=== PATIENT | female | born 1985 | race Caucasian/White ===

== ENCOUNTER 2020-08-09 07:43 | Emergency (ER) | payer BC, SELFPAY ==
[2020-08-09 07:52] VITALS: BP 154/81; PULSE 73; RESP 16; TEMP 36.2; O2SAT 98; BMI 30.2
[2020-08-09 07:59] VITALS: BP 119/72; PULSE 69; RESP 17; O2SAT 98
[2020-08-09 08:17] LABS: Glucose Point of Care 122 mg/dL (70-110)
--- NOTE | 2020-08-09 08:18 | CT_ITS ---
WS: [id number] CT HEAD NONCONTRAST HISTORY: R side numbness TECHNIQUE: Contiguous axial imaging performed through the brain in 2.5 mm imaging. Bone and soft tiss ue windows. Sagittal and coronal reformats reviewed. All CT scans at [facility] use at ast one of these dose optimization techniques: automated exposure control; mA and/or kV adjustment pe r patient size (includes targeted exams where dose is matched to clinical indication); or iterative r econstruction. DLP: 863.87 mGy.cm COMPARISON: None available. No acute intracranial hemorrhage, midline shift or mass effect. No atrophy or prior infarcts or herniation. Ventricles: Normal size with no hydrocephalus. Paranasal sinuses: As visualized are clear. Mastoid air cells: Well pneumatized. Calvarium and scalp: Skull is intact with no soft tissue edema or swelling. CT/CT head wo con* [id number] IMPRESSION: Negative head CT.
[2020-08-09 08:28] LABS: Basophils % 0.4 %; Eosinophils # 0.2 10^3/uL (0.0-0.8); Eosinophils % 2.7 %; Hematocrit 42.4 % (37.0-47.0); Hemoglobin 13.6 g/dL (11.5-15.3); Lymphocytes # 2.7 10^3/uL (0.8-4.8); Lymphocytes % 34.6 %; Mean Corpuscular HGB Conc 32.1 g/dL (30.0-36.0); Mean Corpuscular Hemoglobin 29.4 pg (28.0-34.0); Mean Corpuscular Volume 91.6 fL (81-99); Monocytes # 0.5 10^3/uL (0.2-0.9); Monocytes % 6.2 %; Neutrophils # 4.31 10^3/uL (1.8-7.7); Neutrophils % 55.7 %; Nucleated Red Blood Cells % 0 %; Platelet Count 301 10^3/cmm (130-400); Red Blood Count 4.63 10^6/uL (4.1-5.3); Red Cell Distribution Width 12.6 % (12.1-15.1); White Blood Count 7.7 10^3/uL (4.0-10.0)
--- NOTE | 2020-08-09 08:39 | ED_ITS ---
HPI - Neuro Symptoms/Deficit General: Chief Complaint: Neuro Symptoms/Deficit Stated Complaint: Rt side Numbness Time Seen by Provider: 08/09/20 07:53 History of Present Illness: HPI Narrative: 35-year-old female presents emergency room with complaint of episode of numbness and tingling on the right side lasted 10 or 15 minutes this morning. She said it began in her right nostril and spread to her right arm and leg resolved after a few minutes. She is not had this previously. She has had pain behind her right eye that she is attributed to a migraine is been going on for several days. No photophobia photophobia no nausea or vomiting. No effective vision or speech. Onset (ago): minute(s) Timing confirmed by: spouse Location: right arm, right leg and other (Right nostril, pain behind the right eye) History of same: No Severity: mild Quality: tingling Relieving factors: time Exacerbating factors: none Context: gradual onset Associated symptoms: Reports headache(s); Deny chest pain, cough, diaphoresis, fevers/chills, anorexia, malaise, nausea, seizures, short of breath, syncope, tingling, vertigo, vomiting or weakness Treatments Prior to Arrival: none Review of Systems Const: Denies: malaise or diaphoresis ENMT: Denies: throat pain, ear or mastoid pain, nasal discharge or nasal congestion Card: Denies: chest pain or syncope Resp: Denies: dyspnea, productive cough or non-productive cough GI: Denies: nausea or vomiting : Denies: flank pain, difficulty voiding, dysuria, urinary frequency or urinary urgency Skin/Breast: Denies: rash or pruritus Neuro: Reports: headache(s); Denies: vertigo [facility] ED Female Reproductive History: Date of last menstrual period: 07/19/20 NIH stroke score NIHSS: Level Of Consciousness - 1a: 0 Level Of Consciousness Questions - 1b: Both Correct Level Of Consciousness Commands - 1c: Both Correct Best Gaze - 2: Normal Visual Oliveira - 3: No Visual Loss Facial Palsy - 4: Normal Motor Arm Right - 5: No Drift Motor Arm Left - 5: No Drift Motor Leg Right - 6: No Drift Motor Leg Left - 6: No Drift Limb Ataxia - 7: Absent Sensory - 8: Normal Best Language - 9: No Aphasia Dysarthia - 10: Normal Extinction And Inattention - 11: 0 Score: Total Score: 0 Physical Exam Const: COMMON NORMALS: no acute distress GENERAL APPEARANCE: cooperative and comfortable ORIENTATION/CONSCIOUSNESS: Yes awake, Yes oriented to person, Yes oriented to place and Yes oriented to time HENMT: COMMON NORMALS: normocephalic, atraumatic and hearing grossly normal bilaterally HEAD & SCALP: normocephalic and atraumatic Eye: COMMON NORMALS: Equal, round and reactive pupils present, EOMs intact bilaterally, conjunctivae normal and no scleral icterus CONJUNCTIVA: Yes conjunctivae normal PUPIL: Yes Equal, round and reactive pupils present Neck/C-Spine: COMMON NORMALS: full ROM, no lymphadenopathy, supple and no JVD Resp: COMMON NORMALS: normal respiratory effort, No retractions, No use of accessory muscles and clear to auscultation bilaterally AUSCULTATION: clear to auscultation bilaterally Cardio: COMMON NORMALS: no JVD, regular rate, regular rhythm and No murmurs present (Cardio) RATE: regular rate RHYTHM: regular rhythm GI: COMMON NORMALS: Soft to palpation and No hepatosplenomegaly present AUSCULTATION: Yes normoactive bowel sounds PALPATION: Yes Soft to palpation, No Tenderness to palpation present (GI), No Guarding due to palpation present (GI) and Yes No hepatosplenomegaly present Extremity: COMMON NORMALS: normal to inspection, capillary refill normal, no clubbing, cyanosis or edema, no calf tenderness and no pedal edema Neuro: SENSORIUM/ORIENTATION: Yes oriented to person, Yes oriented to place and Yes oriented to time Skin: COMMON NORMALS: no rashes or lesions noted GENERAL SKIN EXAM: no rashes or lesions noted Course Vital Signs: Vital signs: Vital Signs Temperature 97.2 F L 08/09/20 07:52 Pulse Rate 78 08/09/20 09:42 Respiratory Rate 18 08/09/20 09:42 Blood Pressure 158/80 08/09/20 09:42 Pulse Oximetry 99 08/09/20 09:42 MDM - Neuro Symptoms/Deficit MDM Narrative: Medical decision making narrative: Work-up unremarkable reviewed imaging and labs with the patient we will discharge her home started on Topamax have her follow-up with her primary care physician return if has problems. Lab Data: Labs: Lab Results 03/26/21 03/26/21 03/26/21 Range/Units 08:00 08:00 08:03 WBC 7.7 (4.0-10.0) 10^3/ uL RBC 4.63 (4.1-5.3) 10^6/u L Hgb 13.6 (11.5-15.3) g/dL Hct 42.4 (37.0-47.0) % MCV 91.6 (81-99) fL MCH 29.4 (28.0-34.0) pg MCHC 32.1 (30.0-36.0) g/dL RDW 12.6 (12.1-15.1) % Plt Count 301 (130-400) 10^3/c mm MPV 11.0 H (7.4-10.4) fL Neut % (Auto) 55.7 % Lymph % (Auto) 34.6 % [place] % (Auto) 6.2 % Eos % (Auto) 2.7 % Baso % (Auto) 0.4 % Neut # (Auto) 4.31 (1.8-7.7) 10^3/u L Lymph # (Auto) 2.7 (0.8-4.8) 10^3/u L [place] # (Auto) 0.5 (0.2-0.9) 10^3/u L Eos # (Auto) 0.2 (0.0-0.8) 10^3/u L Baso # (Auto) 0.0 (0.0-0.1) 10^3/u L Nucleated RBC % (a uto) 0 % Nucleated RBCs # 0.0 /100WBC Sodium 139 (136-145) mmol/L Potassium 3.5 (3.5-5.1) mmol/L Chloride 103 (98-107) mmol/L Carbon Dioxide 25 (22-29) mmol/L Anion Gap 14.5 (5-19) BUN 9 (6-20) mg/dL Creatinine 0.6 (0.5-0.9) mg/dL GFR Calculation 113.1 (90-130) mL/min Glucose 128 H (65-115) mg/dL POC Glucose 122 H (70-110) mg/dL Calculated Osmolal ity 288 (285-295) mOsm/k g Calcium 8.4 L (8.5-10.5) mg/dL Total Bilirubin 0.2 (0.15-1.2) mg/dL AST 14 (0-32) U/L ALT 13 (0-33) U/L Alkaline Phosphata se 57 (35-105) IU/L Total Protein 7.1 (6.6-8.7) g/dL Albumin 3.8 (3.5-5.2) g/dL Globulin 3.3 (1.3-4.6) g/dL Discharge Plan Discharge Patient Disposition: Home Clinical Impression: Headache, variant migraine Condition: Stable Prescriptions: New Topamax 25 mg tablet 25 mg PO .qhs Qty: 30 RF: 0 Discharge Orders: Discharge ED (Routine); Ordered 08/09/20 Ordered By: Magen Esteban Discharge Diet: Usual diet Discharge Activity: Increase activity as tolerated Patient Instructions: Opioid Safety Coding Level of Care Code ED Prospecting Driller for Maria Fwd Exam Comprehensive
[2020-08-09 08:44] LABS: Alanine Aminotransferase 13 U/L (0-33); Albumin Level 3.8 g/dL (3.5-5.2); Alkaline Phosphatase 57 IU/L (35-105); Anion Gap 14.5 (5-19); Aspartate Amino Transferase 14 U/L (0-32); Blood Urea Nitrogen 9 mg/dL (6-20); Calcium 8.4 mg/dL (8.5-10.5); Carbon Dioxide 25 mmol/L (22-29); Chloride 103 mmol/L (98-107); Globulin 3.3 g/dL (1.3-4.6); Glomerular Filtration Rate 113.1 mL/min (90-130); Glucose 128 mg/dL (65-115); Osmolality Calculated 288 mOsm/kg (285-295); Potassium 3.5 mmol/L (3.5-5.1); Sodium 139 mmol/L (136-145); Total Bilirubin 0.2 mg/dL (0.15-1.2); Total Protein 7.1 g/dL (6.6-8.7)
[2020-08-09 08:58] VITALS: BP 158/80; PULSE 78; RESP 18; O2SAT 99
[2020-08-09 09:42] VITALS: BP 158/80; PULSE 78; RESP 18; O2SAT 99
--- NOTE | 2020-08-15 14:16 | DCPLANNER ---
mental health case manager had message to speak with patient about getting established with a primary care physician. mental health case manager spoke with patient, she stated that she has a primary care physician that she sees.
== END 2020-08-09 09:43 | disposition home or self-care (01) ==
PROVIDERS: Emergency Provider Family Medicine
DX: G43.809 Other migraine, not intractable, without status migrainosus (principal)
CPT/HCPCS: 36416; 70450; 80053; 82962; 85025; 99283

== ENCOUNTER → 2020-08-14 07:57 | Outpatient (BNVA) | payer BC, SELFPAY | PROVIDERS: PCP Nurse Practitioner Family; Visit Provider Specialist | DX: G43.809 Other migraine, not intractable, without status migrainosus (principal); G44.89 Other headache syndrome | CPT/HCPCS: 95816 ==

== ENCOUNTER 2020-09-13 06:51 | Outpatient (CLI) | payer BC, SELFPAY ==
--- NOTE | 2020-09-13 07:15 | MR_ITS ---
WS: [id number] MRI BRAIN WITHOUT CONTRAST HISTORY: G43.809 - Other migraine, not intractable, without status migrainosus COMPARISON: CT 08/09/2020 TECHNIQUE: Diffusion imaging, multiplanar T1, T2 and FLAIR imaging obtained. No evidence for acute infarct or hemorrhage. Alcazar-white matter differentiation is normal. CSF collect ion in the anterior RIGHT middle cranial fossa measures 1.7 x 2.1 cm. No remote or acute infarcts are volume loss. Ventricles and extra-axial spaces are normal. No inferior displacement of cerebellar tonsils. The sella turcica and pituitary gland are unremarkabl e. Posterior fossa is also unremarkable. Dural venous sinuses and [place] of [place] demonstrate no abnormality on this unenhanced studies. Paranasal sinuses: Clear. Mastoid air cells: Normal. Calvarium and scalp: Intact. MR/MR head wo con* [id number] IMPRESSION: 1. No acute infarct or edema. 2. Small RIGHT middle cranial fossa arachnoid cyst.
== END 2020-09-13 06:52 | disposition home or self-care (01) ==
PROVIDERS: PCP Nurse Practitioner Family; Visit Provider Nurse Practitioner Family
DX: G43.809 Other migraine, not intractable, without status migrainosus (principal); G93.0 Cerebral cysts; R53.83 Other fatigue
CPT/HCPCS: 70551; 80061; 81003; 82306; 83036; 84439; 84443; 84481

== ENCOUNTER → 2020-09-24 08:46 | Outpatient (BNVA) | payer BC, SELFPAY | PROVIDERS: PCP Nurse Practitioner Family; Visit Provider Specialist | DX: G43.711 Chronic migraine without aura, intractable, with status migrainosus (principal); G93.0 Cerebral cysts; Z86.73 Personal history of transient ischemic attack (TIA), and cerebral infarction without residual deficits | CPT/HCPCS: 99204 ==

== ENCOUNTER → 2020-10-15 07:59 | Outpatient (BNVA) | payer BC, SELFPAY | PROVIDERS: PCP Nurse Practitioner Family; Visit Provider Specialist | DX: G43.809 Other migraine, not intractable, without status migrainosus (principal) | CPT/HCPCS: 95816 ==

== ENCOUNTER 2020-10-16 06:56 | Outpatient (CLI) | payer BC, SELFPAY ==
--- NOTE | 2020-10-16 07:15 | MR_ITS ---
WS: [id number] MRA HEAD TECHNIQUE: Axial 3-D TOF images obtained with axial images and axial, sagittal, and coronal 2-D refor matted images. CLINICAL INFORMATION: G45.9 - Transient cerebral ischemic attack, unspecified COMPARISON: None. FINDINGS: Distal vertebral arteries are patent. Basilar artery is patent. Normal vascularity to the ENTRY LEVEL TRUCK DRIVER territo ry bilaterally. Both ICAs are patent at the skull base. Normal vascularity to the LOIS and MCA territories bilaterally . No evidence of high-grade proximal stenosis or aneurysm. MR/MR angio head wo con [id number] IMPRESSION: Unremarkable intracranial MRA.
--- NOTE | 2020-10-16 08:00 | MR_ITS ---
WS: [id number] MRA CAROTID WITHOUT AND WITH GADOLINIUM ENHANCEMENT TECHNIQUE: Axial 2-D TOF and gadolinium bolus images obtained with axial images and axial, sagittal, and coronal 2-D reformatted images. CLINICAL INFORMATION: G45.9 - Transient cerebral ischemic attack, unspecified COMPARISON: None. FINDINGS: Left dominant vertebral artery. Both vertebral arteries are patent. RIGHT: Right common carotid artery is patent. No significant right ICA stenosis. ICA is patent to the skull base. LEFT: Left common carotid artery is patent. No significant left ICA stenosis. Left ICA is patent to t he skull base. MR/MR angio neck w con* [id number] IMPRESSION: Normal neck MRA.
[2020-10-16] MEDS: gadobenate dimeglumine 20 mL vial IV (08:09)
== END 2020-10-16 06:57 | disposition home or self-care (01) ==
LOC: RADSHAW 06:58
PROVIDERS: PCP Nurse Practitioner Family; Visit Provider Specialist
DX: G45.9 Transient cerebral ischemic attack, unspecified (principal)
CPT/HCPCS: 70544; 70548; A9577

== ENCOUNTER → 2020-11-04 07:50 | Outpatient (BNVA) | payer BC, SELFPAY | PROVIDERS: PCP Nurse Practitioner Family; Visit Provider Specialist | DX: G43.019 Migraine without aura, intractable, without status migrainosus (principal); G93.0 Cerebral cysts; R20.0 Anesthesia of skin | CPT/HCPCS: 99214 ==

== ENCOUNTER 2022-10-25 14:45 | Emergency (ER) | payer OTHER, SELFPAY ==
[2022-10-25 14:50] VITALS: BP 153/80; PULSE 76; RESP 14; TEMP 36.7; O2SAT 100; BMI 24.3
--- NOTE | 2022-10-25 15:11 | ED_ITS ---
HPI - Skin/Abscess/Foreign Bdy General: Chief complaint: Needlestick/Injury/Exposure Stated complaint: poked by needle Time Seen by Provider: 10/25/22 15:01 Source: patient Mode of arrival: ambulatory Limitations: no limitations History of Present Illness: 37-year-old female presents to the ER today after a possible needlestick exposure. 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 Patient reports she was wearing gloves and was possibly poked with a needle. Patient reports it went through the glove but she is unsure whether it actually stuck her index finger. Patient reports there was no skin breakage or bleeding. She immediately went in rubbed her finger down with alcohol. Patient reports no pain or redness at the possible site of a stick. Patient reports she is up-to-date on her vaccinations. Review of Systems General: Reports: 10 or more systems reviewed and unremarkable except in HPI and below PFSH ED PFSH: Medical History Fatigue Hypertension screen Medication management Vitamin D deficiency Social History Alcohol intake: never Substance/Drug Use: never Physical Exam Const: COMMON NORMALS: no acute distress, average body habitus, patient oriented x3, no limitations, healthy appearing, alert and well nourished Resp: COMMON NORMALS: normal respiratory effort EFFORT & INSPECTION: Yes able to speak in complete sentences Cardio: COMMON NORMALS: regular rate and regular rhythm RATE: regular rate RHYTHM: regular rhythm Extremity: NARRATIVE EXTREMITY EXAM: no injuries noted Neuro: COMMON NORMALS: patient oriented x3 SENSORIUM/ORIENTATION: Yes alert Psych: COMMON NORMALS: mental status grossly normal, Normal thought process present and cooperative THOUGHT PROCESS: Normal thought process present Skin: NARRATIVE SKIN EXAM: No obvious areas of skin breakage, no erythema, no scabbing. Course ED course: Patient presents for needle stick exposure that occurred just prior to arrival. There was not for sure known breakage of the skin. Patient was wearing a glove and reports the needle poke through the glove however she did not know for sure that it pierced the skin. She did immediately cleaned with alcohol. Patient is up-to-date on vaccines. Vital Signs: Vital signs: Vital Signs Temperature 98.1 F 10/25/22 14:50 Pulse Rate 76 10/25/22 14:50 Respiratory Rate 14 10/25/22 14:50 Blood Pressure 153/80 10/25/22 14:50 Pulse Oximetry 100 10/25/22 14:50 Oxygen Delivery Me thod Room Air 10/25/22 14:50 MDM - Skin/Abscess/Foreign Bdy Medicial Decision Making On exam, there is not noted to be any type of skin breakage that occurred. I would advise patient to go ahead and have hep C and HIV testing done. I would recommend she even have this done as a follow-up in 6 weeks and then again at 3 months. I do not think patient needs a postexposure prophylaxis for HIV based on history. Patient reports she is up-to-date on hep B vaccine but unsure if her titer is still at appropriate levels. Patient is okay with not doing the postexposure prophylaxis and will follow-up for testing at 6 weeks in 3 months. Return to the ER with any new or worsening symptoms. Critical Care Time Critical Care Time: Critical Care Time: No Discharge Plan Discharge Patient Disposition: Home Clinical Impression: Exposure to body fluid due to accidental needlestick injury Condition: Stable Prescriptions: No Action desogestrel-ethinyl estradiol [Isibloom] 0.15-0.03 mg tablet 1 tab PO DAILY cholecalciferol (vitamin D3) [Optimal D3] 1,250 mcg (50,000 unit) capsule See Rx Instructions .ROUTE .COMPLEX Qty: 4 0RF Dose Instruction: Take 1 capsule by mouth once a week Rx Instructions: Take 1 capsule by mouth once a week topiramate 50 mg tablet See Rx Instructions .ROUTE .COMPLEX Qty: 30 9RF Dose Instruction: Take 1 tablet by mouth once daily Rx Instructions: Take 1 tablet by mouth once daily sumatriptan succinate 100 mg tablet 100 mg .ROUTE .COMPLEX Qty: 10 5RF Rx Instructions: Take 1 tablet at onset of migraine and repeat in 2 hour if needed Discharge Orders: Discharge ED (Routine); Ordered 10/25/22 Ordered By: Suad Brady Discharge Diet: Usual diet Discharge Activity: Resume usual activity Patient Instructions: Opioid Safety, Pain Management Activity Restrictions/Additional Instructions: Follow-up in 6 weeks and again in 3 months for recheck of HIV and hep C. Return to the ER with any new or worsening symptoms. Coding Level of Care Code ED Mortgage Coordinator for Maria Hollis
[2022-10-25 15:58] LABS: Hepatitis C Virus Antibody Non-Reactive (Nonreactive)
[2022-10-25 15:59] LABS: HIV 1 & 2 Antibody Non-Reactive (Non-Reactiv); HIV 1 & 2 Antigen Non-Reactive (Non-Reactiv)
--- NOTE | 2022-10-28 14:14 | DCPLANNER ---
regional project manager called patient due to no primary care physician - patient declines at this time.
== END 2022-10-25 15:17 | disposition home or self-care (01) ==
PROVIDERS: Emergency Provider Physician Assistant
DX: S69.90XA Unspecified injury of unspecified wrist, hand and finger(s), initial encounter (principal); W27.3XXA Contact with needle (sewing), initial encounter; Y92.59 Other trade areas as the place of occurrence of the external cause; Y99.0 Civilian activity done for income or pay; Z77.21 Contact with and (suspected) exposure to potentially hazardous body fluids
CPT/HCPCS: 36415; 86803; 87806; 99283

== ENCOUNTER 2023-09-17 14:15 | Outpatient (CLI) | payer MEDICAID, SELFPAY ==
--- NOTE | 2023-09-17 14:19 | USR_ITS ---
PROCEDURE INFORMATION: Exam: US First Trimester, Transabdominal and US , Transvaginal Exam date and time: 09/17/2023 2:55 PM Age: 38 years old Clinical indication: Screening exam; Routine US, uterus; Additional info: High risk pregnancies first trimester LABS AND CLINICAL REPORTS: Last menstrual period start date: 07/05/2023 Gestational age (Established): 10 w 4 d Estimated due date (Established): 04/10/2024 TECHNIQUE: Imaging protocol: Real-time transabdominal obstetrical ultrasound of the maternal pelvis and a first trimester , less than 14 weeks 0 days, with image documentation. Transvaginal imaging was used for better evaluation of the fetus, adnexa, and/or cervix. COMPARISON: No relevant prior studies available. FINDINGS: GESTATION: Gestation: Viable intrauterine gestation. Yolk sac is unremarkable. Embryonic/ heart rate: 165 bpm Extra-embryonic membranes/Placenta: Unremarkable. No subchorionic bleed. Amniotic/Chorionic fluid: Amniotic and extra-amniotic fluid are normal for gestational age. BIOMETRY: Gestational age (AUA): 10 weeks 4 days MATERNAL: Uterus: Unremarkable. Cervix: Unremarkable. Right ovary/adnexa: Obscured by lack of adequate acoustic window. Left ovary/adnexa: Obscured by lack of adequate acoustic window. Intraperitoneal space: No intraperitoneal free fluid. US/US OB <= 14 weeks fetus [id number] IMPRESSION: Viable IUP at 10 weeks 4 days. No worrisome abnormality noted.
== END 2023-09-17 14:16 | disposition home or self-care (01) ==
LOC: RAD 14:16
PROVIDERS: PCP Family Medicine; Visit Provider Family Medicine
DX: O09.891 Supervision of other high risk pregnancies, first trimester (principal); Z3A.10 10 weeks gestation of pregnancy
CPT/HCPCS: 76801

== ENCOUNTER 2023-11-19 11:41 | Outpatient (CLI) | payer MEDICAID, SELFPAY ==
--- NOTE | 2023-11-19 12:00 | USR_ITS ---
PROCEDURE INFORMATION: Exam: US , Limited Exam date and time: 11/19/2023 12:08 PM Age: 38 years old Clinical indication: Screening exam; Routine US, uterus; Additional info: Anatomy scan LABS AND CLINICAL REPORTS: Gestational age (Established): 19 w 4 d Estimated due date (Established): 04/10/2024 TECHNIQUE: Imaging protocol: Real-time ultrasound of the maternal uterus with image documentation. Exam focused on the clinical indication. COMPARISON: US OB <= 14 weeks fetus [id number] 09/17/2023 2:55 PM FINDINGS: Gestation: Single live intrauterine gestation. heart rate: 148 bpm. presentation and position: Vertex. Placenta: Posterior. Amniotic fluid (Qualitative): Adequate amount of amniotic fluid. ANATOMY: midline falx: Normal cerebellum: Normal lateral ventricles: Normal cisterna magna: Normal choroid plexus: Normal. Small cyst measuring 0.7 x 0.5 cm noted face: Normal heart four-chamber view, heart size and position: Normal heart right ventricular outflow tract: Normal heart left ventricular outflow tract: Normal kidneys: Normal stomach: Normal urinary bladder: Normal spine: Normal Umbilical cord and insertion: Normal. Normal 3 vessel cord external genitalia: Normal lower limbs: Normal upper limbs: Normal BIOMETRY: Gestational age (AUA): 19 weeks 2 days Estimated due date (AUA): 04/12/2024 Estimated weight: 274.25 g. EFW by AC, BPD, FL, HC, Hadlock 1985, 22% Biparietal diameter (BPD): 4.45 cm. EGA (BPD) is 19 w 3 d. 45.1 % percentile Head circumference (HC): 17.98 cm. EGA (HC) is 20 w 3 d. 79.9 % percentile Abdominal circumference (AC): 13.42 cm. EGA (AC) is 18 w 6 d. 23.5 % percentile Femur length (FL): 2.93 cm. EGA (FL) is 19 w 0 d. 23.7 % percentile HC/AC: 1.34. (Normal range: 1.09 - 1.26) FL/HC: 16.3. (Normal range: 16.3 - 18.73) FL/BPD: 65.84 FL/AC: 21.83 MATERNAL: Cervix: Cervical length measures 4.7 cm. US/US OB >= 14 weeks fetus [id number] IMPRESSION: Single live intrauterine gestation with estimated age of 19 weeks 2 days and weight of 274.25 g.
== END 2023-11-19 11:42 | disposition home or self-care (01) ==
LOC: RAD 11:43
PROVIDERS: PCP Family Medicine; Visit Provider Family Medicine
DX: Z36.2 Encounter for other antenatal screening follow-up (principal); Z3A.19 19 weeks gestation of pregnancy
CPT/HCPCS: 76805

== ENCOUNTER 2024-01-07 11:48 | Outpatient (CLI) | payer MEDICAID, SELFPAY ==
--- NOTE | 2024-01-07 11:51 | US_ITS ---
WS: [id number] OB ultrasound, 01/07/2024 Clinical Data: REPEAT US CHOROID PLEXUS CYST Comparison: OB ultrasound, 11/19/2023 Findings: There is a single intrauterine in the vertex presentation. The placenta is posterior and gr cely 0. There is a normal amount of amnionic fluid. The heart rate is 155 beats per minute. The cervix measures 3.2 cm and is closed. Measurements of growth and development: BPD: 6.7 cm 27 weeks 0 days HC: 24.9 cm 27 weeks 0 days AC: 22.7 cm 27 weeks 0 days FL: 4.9 cm 26 weeks 5 days The estimated weight is 1001.2; 2 pounds 3 ounces The estimated gestational age is 27w0d with an CALE of approximately 04/07/2024. anatomy shows a choroid plexus cyst which has diminished in size, now measuring 0.2 x 0.4 x 0.5 cm [place] [id number] Impression: 1. Single intrauterine in vertex presentation. 2. Estimated gestational age 27w0d with an CALE of 04/07/2024. 3. heart rate 155 beats per minute. 4. Decreased size of choroid plexus cyst.
== END 2024-01-07 11:49 | disposition home or self-care (01) ==
LOC: RAD 11:48
PROVIDERS: PCP Family Medicine; Visit Provider Family Medicine
DX: O36.8990 Maternal care for other specified fetal problems, unspecified trimester, not applicable or unspecified (principal)
CPT/HCPCS: 76816

== ENCOUNTER 2024-01-16 06:31 | Outpatient (CLI) | payer MEDICAID, SELFPAY ==
[2024-01-16 06:53] VITALS: BP 120/59; PULSE 83
[2024-01-16 07:22] VITALS: BMI 33.6
[2024-01-16 07:56] LABS: Bilirubin Urine Negative (Negative); Blood Urine Negative (Negative); Glucose Urine UA Negative (Normal); Ketones Urine Negative (Negative); Leukocyte Esterase Urine Trace (Negative); Nitrate Urine Positive (Negative); Protein Urine 1+ (Negative); Urine Appearance Cloudy (CLEAR); Urine Color Dark Yellow (Yellow); pH Urine 5.5 (5-7)
[2024-01-16 07:59] LABS: Bacteria Urine 4+ /hpf; Hyaline Casts Urine 3.71 /lpf; RBC Urine 0-2 /hpf (0-2)
[2024-01-16 08:03] LABS: Add Urine Culture? Yes
[2024-01-16] MEDS: acetaminophen 500 mg Tablet 1000 MG PO (08:30)
[2024-01-16 08:42] VITALS: BP 111/53; PULSE 87
[2024-01-16] MEDS: amoxicillin-clav 875-125 mg Tablet 1 TAB PO (08:45)
[2024-01-16 08:48] VITALS: BP 111/53; PULSE 87; RESP 16; TEMP 36.7
== END 2024-01-16 08:51 | disposition home or self-care (01) ==
LOC: OPOB 06:35 → OBGYN 06:36
PROVIDERS: PCP Family Medicine; Visit Provider Family Medicine
DX: O26.899 Other specified pregnancy related conditions, unspecified trimester (principal); Z3A.00 Weeks of gestation of pregnancy not specified; R10.9 Unspecified abdominal pain
CPT/HCPCS: 81001; 87086; 99211

== ENCOUNTER 2024-03-12 21:11 | Outpatient (CLI) | payer MEDICAID, SELFPAY ==
[2024-03-12 21:11] VITALS: BMI 35.4
[2024-03-12 21:20] VITALS: TEMP 35.8
[2024-03-12 21:21] VITALS: BP 136/66; PULSE 71
[2024-03-12 21:44] VITALS: BP 133/66; PULSE 80
[2024-03-12 21:58] VITALS: BP 133/66; PULSE 80; RESP 16
== END 2024-03-12 21:59 | disposition home or self-care (01) ==
LOC: OPOB 21:16 → OBGYN 21:17
PROVIDERS: PCP Family Medicine; Visit Provider Family Medicine
DX: O36.8190 Decreased fetal movements, unspecified trimester, not applicable or unspecified (principal); Z3A.00 Weeks of gestation of pregnancy not specified
CPT/HCPCS: 59025; 99211

== ENCOUNTER 2024-04-06 11:52 | Inpatient (IN) | payer MEDICAID, SELFPAY ==
[2024-04-06] VITALS (58 sets, daily range): BP systolic 103–184; BP diastolic 50–127; PULSE 66–111; RESP 16; O2SAT 91–100; BMI 36.9
--- NOTE | 2024-04-06 11:53 | PM.OBGYHP ---
Providers/Chief Complaint Admitting Physician: Barbra Hitchcock DO Primary Care Provider: Barbra Hitchcock DO Chief Complaint: induction HPI SOCK LINING STITCHER History of Present Illness Jaquelin Marques is a 38 year old female at 39w3d based on sure LMP c/w 1st trimester US presenting for induction of labor with past medical history of advanced maternal age, prior miscarriage with D&C. labs significant for positive urine culture- treated. Denies cramping/contractions, LOF, vaginal bleeding. Good movement. care was good and starting in the 1st trimester. testing significant for anatomy US overall wnl apart from small choroid plexus cyst- repeat US with decreasing size. Labs Blood type OB HPI: O (+) positive Rubella: Immune RPR: Negative GBS: Negative HBsAG: Negative Other Lab Information: Antibody negative HIV negative GC/Chlam negative Initial H/H 13.4/39.7 UCx E.coli- treated with negative repeat culture [id number] negative for Trisomy 13,18,21 1hr GTT failed (144), 3 hr passed (80,154,139,102) 3rd trimester H/H 10.9/32.0 Review of Systems Const: Denies: fever(s) or chills Resp: Denies: dyspnea or productive cough GI: Denies: abdominal pain, nausea or vomiting : Denies: dysuria Skin/Breast: Denies: rash or pruritus Medications/Allergies Home Medications Medication Instructions Recorded Confirmed Last Taken Type Iron (ferrous sulfate) 1 tab PO DAILY 03/12/24 03/12/24 1 Day Ago History ~03/11/24 + DHA 1 tab PO DAILY 03/12/24 03/12/24 1 Day Ago History ~03/11/24 Allergies Allergy/AdvReac Type Severity Reaction Status Date / Time No Known Allergies Allergy Verified 10/25/22 14:50 PFSH SOCK LINING STITCHER PFSH: Medical History Fatigue Hypertension screen Medication management Vitamin D deficiency Social History Alcohol intake: never Substance/Drug Use: never History History History 4 Term 2 0 Miscarriages/Ectopic 1 Living Children 2 Vitals/I&O/Wt Last Vital Signs Pulse 66 04/06/24 11:43 BP 122/63 04/06/24 11:43 Physical Exam Const: COMMON NORMALS: no acute distress, no limitations, healthy appearing and alert Resp: COMMON NORMALS: normal respiratory effort and clear to auscultation bilaterally Cardio: COMMON NORMALS: regular rate, regular rhythm, S1 normal heart sound present, S2 normal heart sound present and No murmurs present (Cardio) : OTHER: Gravid S=D Extremity: OTHER: Trace LE edema bilaterally Data 04/06/24 11:35 Results Labs OB ([facility]): Obstetrics US 01/07/24 Blood Type O Positive 04/06/24 Antibody Screen Negative 04/06/24 Hct 36.8 % (36-47) 04/06/24 Hgb 11.90 g/dL (11.27-16.99) 04/06/24 Rho(D) Type Rh positive 04/06/24 Plt Count 220 10^3/cmm (157-399) 04/06/24 A&P Assessment and plan (1) Elective induction of labor planned: (2) Term : Plan 38 year old female at 39w3d admitted for induction of labor. Routine CBC, blood typing. Cytotec x 1 with recheck in 4 hours. Intermittent EFM as long as Category I FHT. Fentanyl protocol, may have epidural when desired. Attestations Medical Necessity Statement*: Jaquelin Linda Marques's hospital stay will require greater than 2 midnights for labor and delivery and care. Coding Level of Care Code Acute Code for Chg Fwd Diagnoses Elective induction of labor planned Term Z34.90
[2024-04-06 12:00] LABS: Basophils % 0.3 %; Eosinophils # 0.1 10^3/uL (0.0-0.8); Eosinophils % 0.8 %; Hematocrit 36.8 % (36-47); Lymphocytes # 1.9 10^3/uL (0.8-4.8); Lymphocytes % 20.2 %; Mean Corpuscular HGB Conc 32.3 g/dL (30-55); Mean Corpuscular Hemoglobin 28.5 pg (27-33); Mean Corpuscular Volume 88.2 fl (85-98); Mean Platelet Volume 12.4 fL (7.4-10.4); Monocytes # 0.9 10^3/uL (0.2-0.9); Monocytes % 9.7 %; Neutrophils # 6.32 10^3/uL (1.8-7.7); Neutrophils % 67.9 %; Nucleated Red Blood Cells % 0 %; Platelet Count 220 10^3/cmm (157-399); Red Blood Count 4.17 10^6/uL (3.85-5.65); Red Cell Distribution Width 14.6 % (12.1-15.1)
[2024-04-06] MEDS: miSOPROStol 100 mcg tablet 25 MCG VAGINAL (12:08)
[2024-04-06] MEDS: lactated ringers 1,000 ML 999 ML IV ×2 (20:50→22:00)
--- NOTE | 2024-04-06 22:07 | P.ANESASSM_ITS ---
Pre-Anesthetic Assessment Height/Weight: Height 1.57 m Weight 91.626 kg Pulse Resp BP Pulse Ox O2 Del Method 91 16 128/61 100 Room Air 04/06/24 22:05 04/06/24 11:53 04/06/24 22:05 04/06/24 22:05 04/06/24 11:51 Preop Diagnosis: labor pain epidural Familial anesthetic complications: none Was Beta Kb taken within 24 hours: N/A Was Clonidine taken within 24 hours: N/A Social No alcohol and No tobacco Exam alert and oriented x 3 Airway Submandibular: within normal limits Cervical ROM: within normal limits Mallampati: Class II Dentition: full History/ROS No significant complaints Anesthetic Plan ASA status: 2 Anesthesia: Anesthesia Evaluation and Regional (specify below) Medications/Allergies Home Medications Medication Instructions Recorded Confirmed Last Taken Type Iron (ferrous sulfate) 1 tab PO DAILY 03/12/24 03/12/24 1 Day Ago History ~03/11/24 + DHA 1 tab PO DAILY 03/12/24 03/12/24 1 Day Ago History ~03/11/24 Allergies Allergy/AdvReac Type Severity Reaction Status Date / Time No Known Allergies Allergy Verified 10/25/22 14:50 Current Medications Generic Name Dose Route Start Last Admin Trade Name Freq PRN Reason Stop Dose Admin Lactated Ringer's 1,000 mls @ 999 mls/hr 04/06/24 20:37 04/06/24 20:50 Lactated Ringers IV 999 mls/hr .Q1H1M PRN Administration See label comments PFSH Anesthesia Medical History Fatigue Hypertension screen Medication management Vitamin D deficiency Social History Alcohol intake: never Substance/Drug Use: never Female Reproductive History : 4 Data Anesthesia 04/06/24 11:35 Short CBC 04/06/24 Range/Units 11:35 WBC 9.30 (3.29-11.43) 10^3/uL Hgb 11.90 (11.27-16.99) g/dL Hct 36.8 (36-47) % MCV 88.2 (85-98) fl Plt Count 220 (157-399) 10^3/cmm Neut % (Auto) 67.9 % Neut # (Auto) 6.32 (1.8-7.7) 10^3/uL Blood Bank 04/06/24 11:35 Blood Type O Positive Rho(D) Type Rh positive Antibody Screen Negative Cardiac Studies: 2 No Data to Display
--- NOTE | 2024-04-06 22:08 | ANES.PROC ---
Anesthesia Procedures Procedure/Date: 04/06/24 Epidural: Time Out Performed: Yes Consents Signed: Procedure Consent Consent: from patient, risks and benefits reviewed and patient agrees to proceed Lumbar Level: L3-L4 Epidural position: sitting Epidural procedure: sterile prep of area, 1% lidocaine to numb the area, 18 g needle, negative for paresthesia passed, neg for paresthesia, test dose given, 1.5% xylocaine 1:200k epi, placed PCEA, no systemic response, sterile dressing applied, L.U.D. no apparent complications and 0.2% Ropiavacaine @ mls/hr (10) Additional Comments: ALBINO at 5, negative CSF/heme upon aspiration. taped at 12 at skin. tolerated well.
[2024-04-06] MEDS: ROPivacaine syringe 100 MG/50 ML SYRINGE 10 MG EPIDURAL (22:15)
[2024-04-07] VITALS (56 sets, daily range): BP systolic 96–132; BP diastolic 50–89; PULSE 73–122; RESP 16–17; TEMP 36.6–36.9; O2SAT 78–100; BMI 36.9
[2024-04-07] MEDS: tranexamic acid 1,000 MG/100 ML PREMIX 600 MG IV ×2 (00:35→01:10)
[2024-04-07] MEDS: oxytocin 30 UNIT/500 ML BAG 600 UNIT IV (00:45)
[2024-04-07] MEDS: miSOPROStol 200 mcg Tablet 800 MCG PR (00:51)
[2024-04-07] MEDS: carboprost tromethamine 250 mcg/mL Amp IM (00:56)
[2024-04-07] MEDS: ondansetron 2 mg/ML SDV 2 mL 4 MG IVP (01:23)
--- NOTE | 2024-04-07 01:43 | P.PCNOB_ITS ---
Delivery Note: Date of delivery: April 07, 2024 Pre-delivery diagnoses: Term Induction of labor Post-delivery diagnoses: Term delivery of viable female Procedure: Spontaneous vaginal delivery Delivering Physician: Barbra Hitchcock DO Estimated blood loss (mL): 1,250 Pre-Delivery Course: Admitted on 04/06/2024 for induction of labor. Given Cytotec x 1 with recheck 4 hours after SVE change from initial 1/40/-3 to 1.5/60/-3. At that time contractions were every 2 to 3 minutes. She was expectantly managed and at 1945 AROM performed with clear fluids. Baby and mom tolerated procedure well. At that time SVE was 3.5/60/-3. She then gradually progressed and requested epidural. After epidural anesthesia, I was called at approximately 2120 and informed that monitoring showed recurrent decelerations?some variable, some early, some late. Also reported that after placement of Haas catheter was noted to have small blood clots with vaginal exam. I began and route and on my presentation noted SVE to be 9/95/0. Noted to have moderate bleeding with vaginal exam. Intermittent category 2 heart tones noted. She was given bolus of fluids and position changes with resolution of category 2 heart tones and noted to be category 1. She then gradually progressed to complete. Delivery: Patient progressed to complete. Patient placed in lithotomy position. Patient pushed with adequate effort. Head delivered in CLEMENT position, no nuchal cord was present. Shoulders and rest of body delivered without difficulty with adequate epidural anesthesia. Mouth and nares bulb suctioned. placed on maternal abdomen. Cord clamped and cut after 1 minute delay. Placenta spontaneously delivered and noted to be intact. Pitocin started. Fundus was noted to be firm with massage however she was noted to have steady bleeding. The vagina and cervix were inspected and no lacerations were noted although posterior lip of the cervix was not well-visualized. Due to continued bleeding she was given 1 g TXA, and 100 mg Cytotec, 250 mcg Hemabate followed by a second dose of 1 g TXA. Bleeding was noted to slow but still continue with moderate bleeding. Fundus was again noted firm. Vaginal packing placed and at this time I consulted with on-call SEN[employer]EL[employer] Dr. López who began and route and on presentation exam and cervix and noted no significant cervical laceration. At this point bleeding had slowed significantly and noted to be small. Second bag of 30 units Pitocin will be given as well. Female born at 0041 on 04/07/2025 with 8/9 weighing 3650 g and measuring 20.75 in length, 14.5 head circumference and 14 chest Circumference. Placenta noted to be intact with centrally inserted umbilical cord and three- vessel cord. Complications: Maternal hemorrhage none History History History 4 Term 3 0 Miscarriages/Ectopic 1 Living Children 3 A&P Assessment and plan (1) Spontaneous vaginal delivery: (2) hemorrhage: Coding Level of Care Code Acute Code for Chg Fwd Diagnoses Spontaneous vaginal delivery O80 hemorrhage O72.1
[2024-04-07] MEDS: oxytocin 30 UNIT/500 ML BAG 60 UNIT IV (02:00)
[2024-04-07] MEDS: dextrose 5%-lactated ringers 1,000 ML 125 ML IV (02:00)
[2024-04-07 08:22] LABS: Hematocrit 23.9 % (36-47); Mean Corpuscular HGB Conc 32.2 g/dL (30-55); Mean Corpuscular Hemoglobin 28.9 pg (27-33); Mean Corpuscular Volume 89.8 fl (85-98); Mean Platelet Volume 11.2 fL (7.4-10.4); Platelet Count 151 10^3/cmm (157-399); Red Blood Count 2.66 10^6/uL (3.85-5.65); Red Cell Distribution Width 15.2 % (12.1-15.1); White Blood Count 27.66 10^3/uL (3.29-11.43)
[2024-04-07] MEDS: ibuprofen 800 mg tablet PO ×3 (08:32→20:40)
[2024-04-07] MEDS: PRENATAL VIT NO.130/IRON/FOLIC 1 EACH TABLET PO (08:33)
[2024-04-07 08:46] LABS: Absolute Neutrophil 23.5 10^3/cmm (1.4-6.5); Absolute Segmented Neutrophil 23.5 10/cmm (1.6-7.1); Eosinophils 0 %; Lymphocytes 9 %; Lymphocytes Absolute 2.5 10^3/cmm (1.2-3.4); Monocytes Absolute 1.7 10^3/cmm (0.1-0.6); Platelet Estimate Decreased (Normal); Segmented Neutrophils 85 %; Total Cells Counted 100 (0-100)
[2024-04-07] MEDS: ferrous sulfate EC 325 mg Tablet PO (09:09)
[2024-04-07] MEDS: docusate sodium 100 mg Capsule PO (20:40)
[2024-04-08] VITALS (25 sets, daily range): BP systolic 95–131; BP diastolic 50–100; PULSE 75–139; RESP 14–117; TEMP 36.6–39.5; O2SAT 96–100; BMI 36.9
[2024-04-08 04:47] LABS: Mean Corpuscular HGB Conc 31.6 g/dL (30-55); Mean Corpuscular Hemoglobin 28.8 pg (27-33); Mean Platelet Volume 11.1 fL (7.4-10.4); Platelet Count 101 10^3/cmm (157-399); Red Blood Count 2.12 10^6/uL (3.85-5.65); Red Cell Distribution Width 15.8 % (12.1-15.1); White Blood Count 15.43 10^3/uL (3.29-11.43)
[2024-04-08 05:14] LABS: Hematocrit 19.3 % (36-47)
[2024-04-08] MEDS: acetaminophen 325 mg Tablet 650 MG PO (06:30)
--- NOTE | 2024-04-08 07:23 | PM.OBGYPN ---
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 She is receiving 1 unit PRBC. She did also have a Tmax of 103 this morning as well. She reports she is feeling well. Denies any new symptoms. Reports she has some lower abdominal tenderness when pushed but no exquisite tenderness and does not bother her when she is sitting normally. She has voided and denies any dysuria. She is passing gas well. She denies any lower extremity edema or pain. She has been up and walking to the bathroom herself. She has been tolerating a normal diet without any nausea or vomiting. Reports bleeding has been good overnight. Reports the amount of regular period and has not been passing any clots Vitals/I&O/Wt Last Vital Signs Temp 103.1 F H 04/08/24 06:50 Pulse 135 H 04/08/24 06:50 Resp 16 04/08/24 06:50 BP 114/74 04/08/24 06:50 Pulse Ox 99 04/08/24 06:50 O2 Del Method Room Air 04/08/24 06:30 04/07/24 04/08/24 04/08/24 22:59 06:59 14:59 Intake Total 0 / 0 Balance 0 / 0 Weight last 48 hrs Weight 202 lb Weight 202 lb Weight 202 lb Physical Exam Const: COMMON NORMALS: no acute distress, no limitations, healthy appearing and alert Resp: COMMON NORMALS: normal respiratory effort and clear to auscultation bilaterally AUSCULTATION: clear to auscultation bilaterally Cardio: COMMON NORMALS: regular rhythm, S1 normal heart sound present and S2 normal heart sound present; negative for regular rate (Increased rate) and negative for No murmurs present (Cardio) (2/6 systolic flow murmur) RATE: abnormal rate (Increased rate) RHYTHM: regular rhythm HEART SOUNDS: S1 normal heart sound present and S2 normal heart sound present Extremity: OTHER: Trace LE edema bilaterally Neuro: SENSORIUM/ORIENTATION: Yes alert Urinary Catheter Management: Haas: Cath Placed During This Visit: yes Urinary Catheter Date of Insertion: 04/06/24 Urinary Catheter Time of Insertion: 22:40 Data 04/09/24 05:09 04/09/24 05:09 Other Labs: Laboratory Results - last 48 hr 04/06/24 04/08/24 11:35 04:30 WBC 15.43 H RBC 2.12 L Hgb 6.10 L* Hct 19.3 L* MCV 91.0 MCH 28.8 MCHC 31.6 RDW 15.8 H Plt Count 101 L D MPV 11.1 H Sodium Potassium Chloride Carbon Dioxide Anion Gap BUN Creatinine GFR Calculation Glucose Calculated Osmolality Lactate Calcium Total Bilirubin AST ALT Alkaline Phosphatase Total Protein Albumin Globulin Urine Color Urine Appearance Urine pH Ur Specific [place] Urine Protein Urine Glucose (UA) Urine Ketones Urine Blood Urine Nitrate Urine Bilirubin Urine Urobilinogen Ur Leukocyte Esterase Urine RBC Urine WBC Ur Squamous Epith Cells Amorphous Sediment Urine Bacteria Hyaline Casts Blood Type O Positive Rho(D) Type Rh positive Antibody Screen Negative Crossmatch See Detail A&P Assessment and plan (1) hemorrhage: (2) Spontaneous vaginal delivery: (3) Anemia: (4) Fever: Plan PPD#1 38yo [id number] s/p complicated by hemorrhage and fever. hemorrhage required 1 g TXA, and 800 mcg Cytotec, 250 mcg Hemabate followed by a second dose of 1 g TXA as well as 60 units Pitocin total. -1 unit PRBC transfusing now with plan for repeat hemogram and assess for second unit at that time. -Fever has resolved with Tylenol and she has no other significant symptoms?plan to continue to monitor vital signs as well as for any new symptoms with repeat WBC with her hemogram. Her white blood cell count has improved from her immediate WBC. Attestations Medical Necessity Statement*: Jaquelin Marques's hospital stay will require greater than 2 midnights for labor, delivery and care. Coding Level of Care Code Acute Code for Chg Fwd Diagnoses hemorrhage O72.1 Spontaneous vaginal delivery O80 Anemia D64.9 Fever R50.9
--- NOTE | 2024-04-08 08:00 | ANE.PACU2 ---
Inpatient post-anesthesia follow up: Airway intact: Yes Vital signs: Temperature 98.2 F Pulse Rate 91 Respiratory Rate 16 Blood Pressure 109/74 Pulse Oximetry 98 Oxygen Delivery Me thod Room Air Oxygen Flow Rate Fraction of Inspir ed Oxygen Hydration adequate: Yes Nausea and vomiting: No Pain level: 1 Mental status: Baseline Epidural Start/End: Epidural Start Date: 04/06/24 Epidural Start Time: 21:45 Epidural End Date: 04/07/24 Epidural End Time: 01:43
[2024-04-08] MEDS: PRENATAL VIT NO.130/IRON/FOLIC 1 EACH TABLET PO (08:47)
[2024-04-08] MEDS: ferrous sulfate EC 325 mg Tablet PO (08:47)
[2024-04-08] MEDS: ibuprofen 800 mg tablet PO ×3 (08:48→20:39)
[2024-04-08 11:24] LABS: Hematocrit 21.6 % (36-47); Mean Corpuscular HGB Conc 31.5 g/dL (30-55); Mean Corpuscular Hemoglobin 28.6 pg (27-33); Mean Corpuscular Volume 90.8 fl (85-98); Mean Platelet Volume 11.5 fL (7.4-10.4); Platelet Count 111 10^3/cmm (157-399); Red Blood Count 2.38 10^6/uL (3.85-5.65); Red Cell Distribution Width 15.6 % (12.1-15.1); White Blood Count 14.04 10^3/uL (3.29-11.43)
[2024-04-08] MEDS: sodium chloride 0.9% 100 mL Bag 50 ML IV (12:09)
[2024-04-08 16:09] LABS: Hematocrit 23.4 % (36-47); Mean Corpuscular HGB Conc 32.5 g/dL (30-55); Mean Corpuscular Hemoglobin 29.1 pg (27-33); Mean Corpuscular Volume 89.7 fl (85-98); Mean Platelet Volume 11.4 fL (7.4-10.4); Platelet Count 100 10^3/cmm (157-399); Red Blood Count 2.61 10^6/uL (3.85-5.65); Red Cell Distribution Width 15.5 % (12.1-15.1)
[2024-04-08] MEDS: docusate sodium 100 mg Capsule PO (20:39)
[2024-04-09] VITALS (14 sets, daily range): BP systolic 103–148; BP diastolic 54–90; PULSE 70–134; RESP 15–18; TEMP 36.3–39.4; O2SAT 95–98
[2024-04-09] MEDS: acetaminophen 325 mg Tablet 650 MG PO (05:15)
[2024-04-09 05:26] LABS: Hematocrit 23.7 % (36-47); Mean Corpuscular HGB Conc 31.6 g/dL (30-55); Mean Corpuscular Hemoglobin 28.8 pg (27-33); Mean Corpuscular Volume 91.2 fl (85-98); Mean Platelet Volume 11.7 fL (7.4-10.4); Platelet Count 112 10^3/cmm (157-399); Red Cell Distribution Width 15.8 % (12.1-15.1); White Blood Count 9.44 10^3/uL (3.29-11.43)
[2024-04-09 05:34] LABS: Alanine Aminotransferase 13 U/L (0-33); Albumin Level 2.3 g/dL (3.5-5.2); Alkaline Phosphatase 101 U/L (35-105); Anion Gap 14.7 (5-19); Aspartate Amino Transferase 24 U/L (0-32); Blood Urea Nitrogen 8 mg/dL (6-20); Calcium 7.6 mg/dL (8.5-10.5); Carbon Dioxide 21 mmol/L (22-29); Chloride 103 mmol/L (98-107); Creatinine Clr Calc Pharmacy 159.0858; Globulin 2.4 g/dL (1.3-4.6); Glomerular Filtration Rate 137.4 mL/min (90-130); Glucose 91 mg/dL (65-115); Osmolality Calculated 278 mOsm/kg (285-295); Potassium 3.7 mmol/L (3.5-5.1); Sodium 135 mmol/L (136-145); Total Bilirubin 0.2 mg/dL (0.15-1.2); Total Protein 4.7 g/dL (6.6-8.7)
[2024-04-09 05:35] LABS: Lactate (Lactic Acid level) 1.1 mmol/L (0.5-2.2)
[2024-04-09 06:44] LABS: Bilirubin Urine Negative (Negative); Blood Urine 3+ (Negative); Glucose Urine UA Negative (Normal); Ketones Urine Negative (Negative); Leukocyte Esterase Urine 2+ (Negative); Nitrate Urine Positive (Negative); Protein Urine 2+ (Negative); Specific Gravity, Urine 1.015 (1.005-1.030); Urine Appearance Cloudy (CLEAR); Urine Color Yellow (Yellow); pH Urine 5.5 (5-7)
[2024-04-09 06:49] LABS: Bacteria Urine EXCEEDS /hpf; Hyaline Casts Urine 0.81 /lpf; RBC Urine >100 /hpf (0-2); WBC Urine 51-100 /hpf (0-5)
[2024-04-09 06:55] LABS: Add Urine Culture? Yes
[2024-04-09] MEDS: PRENATAL VIT NO.130/IRON/FOLIC 1 EACH TABLET PO (08:33)
[2024-04-09] MEDS: ferrous sulfate EC 325 mg Tablet PO ×2 (08:33→21:07)
[2024-04-09] MEDS: ibuprofen 800 mg tablet PO ×3 (08:33→21:08)
--- NOTE | 2024-04-09 08:52 | P.PN_ITS ---
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 Does report she feels chilled when she has had a fever. She denies any increase in uterine tenderness. Reports she has been urinating regularly without dysuria. No new symptoms. She has been eating and drinking well. She has not been ambulating without difficulty. Reports her bleeding has been continuing to decrease. Vitals/I&O/Wt Last Vital Signs Temp 97.9 F 04/09/24 08:15 Pulse 84 04/09/24 08:15 Resp 17 04/09/24 08:15 BP 103/59 04/09/24 08:15 Pulse Ox 97 04/09/24 08:15 O2 Del Method Room Air 04/09/24 08:15 Weight last 48 hrs Weight 202 lb Physical Exam 2 Const: COMMON NORMALS: no acute distress, no limitations, healthy appearing and alert Resp: COMMON NORMALS: normal respiratory effort and clear to auscultation bilaterally AUSCULTATION: clear to auscultation bilaterally Cardio: COMMON NORMALS: regular rhythm, S1 normal heart sound present, S2 normal heart sound present and No murmurs present (Cardio) (2/6 systolic flow murmur); negative for regular rate (Increased rate) RATE: abnormal rate (Increased rate) RHYTHM: regular rhythm HEART SOUNDS: S1 normal heart sound present and S2 normal heart sound present : OTHER: Uterine fundus firm and below the umbilicus and non-tender Back/Pelvis: OTHER: Negative CVA tenderness bilaterally Extremity: OTHER: Trace LE edema bilaterally Neuro: SENSORIUM/ORIENTATION: Yes alert Urinary Catheter Management: Haas: Cath Placed During This Visit: yes Urinary Catheter Date of Insertion: 04/06/24 Urinary Catheter Time of Insertion: 22:40 Data 04/09/24 05:09 04/09/24 05:09 A&P Assessment and plan (1) hemorrhage: (2) Spontaneous vaginal delivery: (3) Anemia: (4) Fever: Plan PPD#2 38yo [id number] s/p complicated by hemorrhage and fever. hemorrhage required 1 g TXA, and 800 mcg Cytotec, 250 mcg Hemabate followed by a second dose of 1 g TXA as well as 60 units Pitocin total. -Received 2u PRBC and hemoglobin stable on AM CBC. -2nd fever this AM-she continues with tachycardia as well. On her labs her white blood cell is improving and her lactic acid is normal. Her UA does reveal positive nitrites as well as leukocytes?plan to treat for UTI as potential source of infection. Sent for culture to follow. Attestations 2 Medical Necessity Statement*: Jaquelin Marques's hospital stay will require greater than 2 midnights for labor, delivery and care. Coding Level of Care Code Acute Code for [facility] Fwd Diagnoses hemorrhage O72.1 Spontaneous vaginal delivery O80 Anemia D64.9 Fever R50.9
[2024-04-09 09:05] LABS: Bilirubin Urine Negative (Negative); Blood Urine 1+ (Negative); Glucose Urine UA Negative (Normal); Ketones Urine Negative (Negative); Leukocyte Esterase Urine 1+ (Negative); Nitrate Urine Positive (Negative); Protein Urine Negative (Negative); Specific Gravity, Urine 1.006 (1.005-1.030); Urine Appearance Clear (CLEAR); Urine Color Yellow (Yellow); Urobilinogen Urine 0.2 mg/dL (Negative); pH Urine 6.5 (5-7)
[2024-04-09 09:10] LABS: Bacteria Urine 4+ /hpf; Hyaline Casts Urine 1.21 /lpf; RBC Urine 0-2 /hpf (0-2); Squamous Epithelial Cell Urine 0-5 /hpf (0-5)
[2024-04-09] MEDS: cefepime 2,000 MG in sodium chloride 0.9% (plus) 50 ML 100 MG IV ×2 (10:11→21:35)
[2024-04-09] MEDS: dextrose 5%-lactated ringers 1,000 ML 125 ML IV (10:12)
[2024-04-09] MEDS: docusate sodium 100 mg Capsule PO (21:08)
[2024-04-10] VITALS (14 sets, daily range): BP systolic 109–153; BP diastolic 60–86; PULSE 67–116; RESP 16–18; TEMP 36.5–39.3; O2SAT 96–98
--- NOTE | 2024-04-10 07:45 | P.PN_ITS ---
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 Does report she feels chilled when she has had a fever. She denies any increase in uterine tenderness. Reports she has been urinating regularly without dysuria. No new symptoms. She has been eating and drinking well. She has been ambulating without difficulty. Reports her bleeding has been continuing to decrease. Does have some pink clear discharge without odor. Has had a short period of congestion, minimal cough. Labor: Station: +1 Amniotic Membrane Status: Ruptured Monitor Mode: Palpation Contraction Pattern: Regular Vitals/I&O/Wt Last Vital Signs Temp 98.1 F 04/10/24 20:00 Pulse 70 04/10/24 20:00 Resp 18 04/10/24 20:00 BP 138/69 04/10/24 18:00 Pulse Ox 98 04/10/24 20:00 O2 Del Method Room Air 04/10/24 20:00 04/10/24 04/10/24 04/10/24 06:59 14:59 22:59 Intake Total 211.25 / 211.25 100 / 311.25 Balance 211.25 / 211.25 100 / 311.25 Physical Exam 2 Const: COMMON NORMALS: no acute distress, no limitations, healthy appearing and alert Resp: COMMON NORMALS: normal respiratory effort and clear to auscultation bilaterally AUSCULTATION: clear to auscultation bilaterally Cardio: COMMON NORMALS: regular rhythm, S1 normal heart sound present, S2 normal heart sound present and No murmurs present (Cardio) (1/6 systolic flow murmur); negative for regular rate (Increased rate) RATE: abnormal rate (Increased rate) RHYTHM: regular rhythm HEART SOUNDS: S1 normal heart sound present and S2 normal heart sound present : OTHER: Uterine fundus firm and below the umbilicus and non-tender Back/Pelvis: OTHER: Negative CVA tenderness bilaterally Extremity: OTHER: Trace LE edema bilaterally, no calf tenderness or erythema Neuro: SENSORIUM/ORIENTATION: Yes alert Urinary Catheter Management: Haas: Cath Placed During This Visit: yes Urinary Catheter Date of Insertion: 04/06/24 Urinary Catheter Time of Insertion: 22:40 Data 04/10/24 08:46 04/10/24 08:46 Micro: Microbiology 04/09/24 08:29 Urine Culture - Preliminary Urine Catheterized Gram Negative Rods 04/09/24 06:36 Urine Culture - Preliminary Urine,Clean Catch Gram Negative Rods 04/10/24 08:46 Blood Culture - Preliminary Blood SPECIMEN COLLECTED 04/10/24 08:46 Blood Culture - Preliminary Blood SPECIMEN COLLECTED A&P Assessment and plan (1) hemorrhage: (2) Spontaneous vaginal delivery: (3) Anemia: (4) Fever: Plan PPD#3 38yo [id number] s/p complicated by hemorrhage and fever. hemorrhage required 1 g TXA, and 800 mcg Cytotec, 250 mcg Hemabate followed by a second dose of 1 g TXA as well as 60 units Pitocin total. -Received 2u PRBC and hemoglobin stable on AM CBC. -Has had daily fever including this AM. Has had 2 doses cefepime, WBC decreasing, no new patient symptoms. UCx pending. Lactic acid previously wnl. -Blood cultures x 2 ordered, stop cefepime and start gentamicin, ampicillin, and clindamycin for endometritis coverage due to recurrent fever. Previously in with E.coli UTI and based on prior culture results ampicillin will cover for this. -Repiratory PCR as well. -Repeat CBC, CMP in AM. Attestations 2 Medical Necessity Statement*: Jaquelin Marques's hospital stay will require greater than 2 midnights for labor, delivery and care. Coding Level of Care Code Acute Code for Chg Fwd Diagnoses hemorrhage O72.1 Spontaneous vaginal delivery O80 Anemia D64.9 Fever R50.9
[2024-04-10] MEDS: PRENATAL VIT NO.130/IRON/FOLIC 1 EACH TABLET PO (08:08)
[2024-04-10] MEDS: docusate sodium 100 mg Capsule PO ×3 (08:08→21:20)
[2024-04-10] MEDS: ferrous sulfate EC 325 mg Tablet PO ×3 (08:09→21:20)
[2024-04-10] MEDS: ibuprofen 800 mg tablet PO (08:09)
[2024-04-10] MEDS: ampicillin 2,000 MG in sodium chloride 0.9% (plus) 50 ML 100 MG IV ×3 (09:03→20:50)
[2024-04-10 09:09] LABS: Basophils % 0.4 %; Eosinophils # 0.1 10^3/uL (0.0-0.8); Eosinophils % 1.1 %; Hematocrit 23.7 % (36-47); Lymphocytes % 13.6 %; Mean Corpuscular HGB Conc 32.1 g/dL (30-55); Mean Corpuscular Hemoglobin 28.5 pg (27-33); Mean Corpuscular Volume 88.8 fl (85-98); Monocytes # 0.5 10^3/uL (0.2-0.9); Monocytes % 7.1 %; Neutrophils # 5.09 10^3/uL (1.8-7.7); Nucleated Red Blood Cells % 0.3 %; Platelet Count 158 10^3/cmm (157-399); Red Blood Count 2.67 10^6/uL (3.85-5.65); Red Cell Distribution Width 15.6 % (12.1-15.1); White Blood Count 7.07 10^3/uL (3.29-11.43)
[2024-04-10 09:22] LABS: Alanine Aminotransferase 33 U/L (0-33); Albumin Level 2.5 g/dL (3.5-5.2); Alkaline Phosphatase 128 U/L (35-105); Anion Gap 16.6 (5-19); Aspartate Amino Transferase 42 U/L (0-32); Blood Urea Nitrogen 9 mg/dL (6-20); Calcium 7.8 mg/dL (8.5-10.5); Carbon Dioxide 20 mmol/L (22-29); Chloride 105 mmol/L (98-107); Creatinine Clr Calc Pharmacy 132.5715; Globulin 2.5 g/dL (1.3-4.6); Glomerular Filtration Rate 111.3 mL/min (90-130); Glucose 126 mg/dL (65-115); Osmolality Calculated 286 mOsm/kg (285-295); Potassium 3.6 mmol/L (3.5-5.1); Sodium 138 mmol/L (136-145); Total Bilirubin 0.2 mg/dL (0.15-1.2)
[2024-04-10 10:19] LABS: Adenovirus Not Detected (NOT DETECT); Chlamydia Pneumoniae Not Detected (NOT DETECT); Coronavirus 229E,HKU1,NL63,OC4 Not Detected (NOT DETECT); Human Metapneumovirus Not Detected (NOT DETECT); Human Rhinovirus/Enterovirus Not Detected (NOT DETECT); Influenza A Not Detected (NOT DETECT); Influenza A H1 Not Detected (NOT DETECT); Influenza A H1-2009 Not Detected (NOT DETECT); Influenza A H3 Not Detected (NOT DETECT); Influenza B Not Detected (NOT DETECT); Mycoplasma Pneumoniae Not Detected (NOT DETECT); Parainfluenza Virus Type 1 Not Detected (NOT DETECT); Parainfluenza Virus Type 2 Not Detected (NOT DETECT); Parainfluenza Virus Type 3 Not Detected (NOT DETECT); Parainfluenza Virus Type 4 Not Detected (NOT DETECT); Respiratory Syncytial Virus A Not Detected (NOT DETECT); Respiratory Syncytial Virus B Not Detected (NOT DETECT); SARS-COV-2 Not Detected (NOT DETECT)
[2024-04-10] MEDS: SODIUM CHLORIDE 0.9% IV (10:22)
[2024-04-10] MEDS: GENTAMICIN IV (10:22)
[2024-04-10 10:47] LABS: Slide Review Slide Review Perform
[2024-04-10] MEDS: clindamycin 900 MG/50 ML PREMIX 100 MG IV ×2 (11:49→20:01)
[2024-04-10] MEDS: dextrose 5%-lactated ringers 1,000 ML 125 ML IV (20:01)
[2024-04-11] VITALS (8 sets, daily range): BP systolic 121–151; BP diastolic 68–95; PULSE 56–75; RESP 15–17; TEMP 31.7–36.7; O2SAT 95–98
[2024-04-11] MEDS: ampicillin 2,000 MG in sodium chloride 0.9% (plus) 50 ML 100 MG IV ×2 (02:46→08:43)
[2024-04-11] MEDS: clindamycin 900 MG/50 ML PREMIX 100 MG IV (04:09)
[2024-04-11 07:33] LABS: Alanine Aminotransferase 44 U/L (0-33); Albumin Level 2.6 g/dL (3.5-5.2); Alkaline Phosphatase 136 U/L (35-105); Anion Gap 12.9 (5-19); Aspartate Amino Transferase 44 U/L (0-32); Blood Urea Nitrogen 8 mg/dL (6-20); Calcium 7.7 mg/dL (8.5-10.5); Carbon Dioxide 23 mmol/L (22-29); Chloride 104 mmol/L (98-107); Creatinine Clr Calc Pharmacy 198.8572; Globulin 2.6 g/dL (1.3-4.6); Glomerular Filtration Rate 177.7 mL/min (90-130); Glucose 83 mg/dL (65-115); Osmolality Calculated 279 mOsm/kg (285-295); Potassium 3.9 mmol/L (3.5-5.1); Sodium 136 mmol/L (136-145); Total Bilirubin 0.2 mg/dL (0.15-1.2); Total Protein 5.2 g/dL (6.6-8.7)
[2024-04-11 07:54] LABS: Hematocrit 22.1 % (36-47); Mean Corpuscular HGB Conc 32.6 g/dL (30-55); Mean Platelet Volume 11.9 fL (7.4-10.4); Platelet Count 175 10^3/cmm (157-399); Red Blood Count 2.57 10^6/uL (3.85-5.65); Red Cell Distribution Width 15.4 % (12.1-15.1); Slide Review Slide Review Perform; White Blood Count 6.88 10^3/uL (3.29-11.43)
[2024-04-11 07:55] LABS: Absolute Eosinophils 0.1 10^3/cmm (0.0-0.7); Absolute Neutrophil 4.1 10^3/cmm (1.4-6.5); Band Neutrophils Absolute 0.1 10^3/cmm (0.0-1.2); Eosinophils 1 %; Giant Platelets Trace; Lymphocytes 21 %; Lymphocytes Absolute 2.2 10^3/cmm (1.2-3.4); Macrocytosis 1+; Microcytosis Trace; Monocytes Absolute 0.5 10^3/cmm (0.1-0.6); Platelet Estimate Decreased (Normal); Polychromasia 1+; Segmented Neutrophils 58 %; Total Cells Counted 100 (0-100)
[2024-04-11] MEDS: PRENATAL VIT NO.130/IRON/FOLIC 1 EACH TABLET PO (08:43)
[2024-04-11] MEDS: ferrous sulfate EC 325 mg Tablet PO (08:43)
--- NOTE | 2024-04-11 12:08 | P.DS_ITS ---
Discharge Providers [employer] Date of Admission: 04/06/24 11:52 Date of Discharge: 04/11/24 Attending Provider at Admission: Barbra Hitchcock DO Attending Provider at Discharge: Barbra Hitchcock DO Primary Care Provider: Barbra Hitchcock DO Diagnoses at Discharge Discharge Diagnosis (1) hemorrhage: Status: Acute (2) Spontaneous vaginal delivery: Status: Acute (3) Anemia: Status: Acute (4) Fever: Status: Acute (5) Endometritis following delivery: Status: Acute (6) Urinary tract infection: Status: Acute Reason for Visit Reason for Visit: induction Hospital Course Hospital Course Pre-Delivery Course: Admitted on 04/06/2024 for induction of labor. Given Cytotec x 1 with recheck 4 hours after SVE change from initial 1/40/-3 to 1.5/60/-3. At that time contractions were every 2 to 3 minutes. She was expectantly managed and at 1945 AROM performed with clear fluids. Baby and mom tolerated procedure well. At that time SVE was 3.5/60/-3. She then gradually progressed and requested epidural. After epidural anesthesia, I was called at approximately 2120 and informed that monitoring showed recurrent decelerations?some variable, some early, some late. Also reported that after placement of Haas catheter was noted to have small blood clots with vaginal exam. I began and route and on my presentation noted SVE to be 9/95/0. Noted to have moderate bleeding with vaginal exam. Intermittent category 2 heart tones noted. She was given bolus of fluids and position changes with resolution of category 2 heart tones and noted to be category 1. She then gradually progressed to complete. Delivery: Patient progressed to complete. Patient placed in lithotomy position. Patient pushed with adequate effort. Head delivered in CLEMENT position, no nuchal cord was present. Shoulders and rest of body delivered without difficulty with adequate epidural anesthesia. Mouth and nares bulb suctioned. placed on maternal abdomen. Cord clamped and cut after 1 minute delay. Placenta spontaneously delivered and noted to be intact. Pitocin started. Fundus was noted to be firm with massage however she was noted to have steady bleeding. The vagina and ce rvix were inspected and no lacerations were noted although posterior lip of the cervix was not well-visualized. Due to continued bleeding she was given 1 g TXA, and 100 mg Cytotec, 250 mcg Hemabate followed by a second dose of 1 g TXA. Bleeding was noted to slow but still continue with moderate bleeding. Fundus was again noted firm. Vaginal packing placed and at this time I consulted with on-call [employer] Dr. López who began en route and on presentation exam and cervix and noted no significant cervical laceration. At this point bleeding had slowed significantly and noted to be small. Second bag of 30 units Pitocin will be given as well. Female born at 0041 on 04/07/2025 with 8/9 weighing 3650 g and measuring 20.75 in length, 14.5 head circumference and 14 chest Circumference. Placenta noted to be intact with centrally inserted umbilical cord and three- vessel cord. Complications: Maternal hemorrhage none EBL 1250cc course: Patient underwent on 04/07/24 complicated by hemorrhage. course was complicated by fever and anemia. Hemoglobin on PPD#1 down to 6.1 g/dL. She received 2 units PRBC with improvement in hemoglobin to above 7 which remained stable for remainder of hospitalization. She is discharged home on iron supplementation. She developed recurrent fever and was otherwise asymptomatic. UA revealed bacteriuria, leukocytes and + nitrites and was started on cefepime. Despite treatment with cefepime fever continued and cefepime was discontinued and started on gentamicin, clindamycin, and ampicillin and treated for over 24 hours. Following she remained afebrile for greater than 24 hours without fever reducing medication, blood cultures returned negative at 24 hours, urine culture positive for E.coli resistant to ampicillin and sensitive to cefepime. She will be discharged with course of augmentin to complete endometritis treatment and cefdinir to complete UTI treatment as E.coli was resistent to augmentin as well. Final blood culture results to be followed outpatient. Following delivery patient ambulated well, tolerated a normal diet without nausea or vomiting. Pain was well controlled on PO medications, bottle feeding, no leg/calf pain, no calf/leg swelling, normal urination, passing gas and normal bowel movements. Vaginal bleeding thin lochia and decreasing. Follow-up planned for 2 weeks on Apr 18, 2024. Warning signs for endometritis, pre- eclampsia, DVT/PE, mastitis were reviewed, discussed additional warning signs including increased vaginal bleeding, worsening abdominal pain. Pelvic rest and activity precautions reviewed as well. She is discharged on 04/11/24 in stable condition. Information Peripartum Data: Infant Delivery Method: Vaginal Physical Exam Const: COMMON NORMALS: no acute distress, no limitations, healthy appearing and alert Resp: COMMON NORMALS: normal respiratory effort and clear to auscultation bilaterally AUSCULTATION: clear to auscultation bilaterally Cardio: COMMON NORMALS: regular rate, regular rhythm, S1 normal heart sound present, S2 normal heart sound present and No murmurs present (Cardio) (1/6 systolic flow murmur) RATE: regular rate RHYTHM: regular rhythm HEART SOUNDS: S1 normal heart sound present and S2 normal heart sound present : OTHER: Uterine fundus firm and below the umbilicus and non-tender Back/Pelvis: OTHER: Negative CVA tenderness bilaterally Extremity: OTHER: Trace LE edema bilaterally, no calf tenderness or erythema Neuro: SENSORIUM/ORIENTATION: Yes alert Urinary Catheter Management: Haas: Cath Placed During This Visit: yes Urinary Catheter Date of Insertion: 04/06/24 Urinary Catheter Time of Insertion: 22:40 History History History 4 Term 3 0 Miscarriages/Ectopic 1 Living Children 3 Discharge Data Studies Completed and Pending Pending at discharge Category Date Time Status Blood Culture Stat Lab 04/10/24 08:46 Results Urine Culture Stat Lab 04/09/24 06:36 Results Laboratory Results WBC 6.88 10^3/uL (3.29-11.43) 04/11/24 07:00 RBC 2.57 10^6/uL (3.85-5.65) L 04/11/24 07:00 Hgb 7.20 g/dL (11.27-16.99) L 04/11/24 07:00 Hct 22.1 % (36-47) L 04/11/24 07:00 MCV 86.0 fl (85-98) 04/11/24 07:00 MCH 28.0 pg (27-33) 04/11/24 07:00 MCHC 32.6 g/dL (30-55) 04/11/24 07:00 RDW 15.4 % (12.1-15.1) H 04/11/24 07:00 Plt Count 175 10^3/cmm (157-399) 04/11/24 07:00 MPV 11.9 fL (7.4-10.4) H 04/11/24 07:00 Neut % (Auto) 72.0 % 04/10/24 08:46 Lymph % (Auto) Not Reportable 04/11/24 07:00 [place] % (Auto) Not Reportable 04/11/24 07:00 Eos % (Auto) 1.1 % 04/10/24 08:46 Baso % (Auto) 0.4 % 04/10/24 08:46 Neut # (Auto) 5.09 10^3/uL (1.8-7.7) 04/10/24 08:46 Lymph # (Auto) Not Reportable 04/11/24 07:00 [place] # (Auto) Not Reportable 04/11/24 07:00 Eos # (Auto) 0.1 10^3/uL (0.0-0.8) 04/10/24 08:46 Baso # (Auto) 0.0 10^3/uL (0.0-0.1) 04/10/24 08:46 Nucleated RBC % (auto) 0.3 % 04/10/24 08:46 Total Counted 100 (0-100) 04/11/24 07:00 Atypical Lymphs % 11.0 % (0-5) H 04/11/24 07:00 Absolute Neutrophils 4.1 10^3/cmm (1.4-6.5) 04/11/24 07:00 Segmented Neutrophils 58 % 04/11/24 07:00 Band Neutrophils 2.0 % 04/11/24 07:00 Absolute Lymphocytes 2.2 10^3/cmm (1.2-3.4) 04/11/24 07:00 Lymphocytes (Manual) 21 % 04/11/24 07:00 Monocytes (Manual) 7.0 % 04/11/24 07:00 Absolute Monocytes 0.5 10^3/cmm (0.1-0.6) 04/11/24 07:00 Eosinophils (Manual) 1 % 04/11/24 07:00 Absolute Eosinophils 0.1 10^3/cmm (0.0-0.7) 04/11/24 07:00 Basophils (Manual) 0.0 % 04/11/24 07:00 Absolute Basophils 0.0 10^3/cmm (0.0-0.2) 04/11/24 07:00 Nucleated RBCs # 0.0 /100WBC 04/10/24 08:46 Platelet Estimate Decreased (Normal) L 04/11/24 07:00 Giant Platelets Trace 04/11/24 07:00 Polychromasia 1+ H 04/11/24 07:00 Microcytosis Trace 04/11/24 07:00 Macrocytosis 1+ H 04/11/24 07:00 Sodium 136 mmol/L (136-145) 04/11/24 07:00 Potassium 3.9 mmol/L (3.5-5.1) 04/11/24 07:00 Chloride 104 mmol/L (98-107) 04/11/24 07:00 Carbon Dioxide 23 mmol/L (22-29) 04/11/24 07:00 Anion Gap 12.9 (5-19) 04/11/24 07:00 BUN 8 mg/dL (6-20) 04/11/24 07:00 Creatinine 0.4 mg/dL (0.5-0.9) L 04/11/24 07:00 GFR Calculation 177.7 mL/min (90-130) H 04/11/24 07:00 Glucose 83 mg/dL (65-115) 04/11/24 07:00 Calculated Osmolality 279 mOsm/kg (285-295) L 04/11/24 07:00 Lactate 1.1 mmol/L (0.5-2.2) 04/09/24 05:09 Calcium 7.7 mg/dL (8.5-10.5) L 04/11/24 07:00 Total Bilirubin 0.2 mg/dL (0.15-1.2) 04/11/24 07:00 AST 44 U/L (0-32) H 04/11/24 07:00 ALT 44 U/L (0-33) H 04/11/24 07:00 Alkaline Phosphatase 136 U/L (35-105) H 04/11/24 07:00 Total Protein 5.2 g/dL (6.6-8.7) L 04/11/24 07:00 Albumin 2.6 g/dL (3.5-5.2) L 04/11/24 07:00 Globulin 2.6 g/dL (1.3-4.6) 04/11/24 07:00 Urine Color Yellow (Yellow) 04/09/24: Urine Appearance Clear (CLEAR) 04/09/24: Urine pH 6.5 (5-7) 04/09/24: Ur Specific [place] 1.006 (1.005-1.030) 04/09/24: Urine Protein Negative (Negative) 04/09/24: Urine Glucose (UA) Negative (Normal) 04/09/24 Urine Ketones Negative (Negative) 04/09/24 Urine Blood 1+ (Negative) A 04/09/24 Urine Nitrate Positive (Negative) A 04/09/24 Urine Bilirubin Negative (Negative) 04/09/24 Urine Urobilinogen 0.2 mg/dL (Negative) 04/09/24 Ur Leukocyte Esterase 1+ (Negative) A 04/09/24 Urine RBC 0-2 /hpf (0-2) 04/09/24: Urine WBC 6-10 /hpf (0-5) 04/09/24: Ur Squamous Epith Cells 0-5 /hpf (0-5) 04/09/24: Amorphous Sediment Not Reportable 04/09/24: Urine Bacteria 4+ /hpf (NONE) H 04/09/24 Hyaline Casts 1.21 /lpf 04/09/24 08: Adenovirus (PCR) Not detected (NOT DETECT) 04/10/24 08:05 C. pneumoniae DNA (PCR) Not detected (NOT DETECT) 04/10/24 08:05 Coronavirus 229E (PCR) Not detected (NOT DETECT) 04/10/24 08:05 Human Metapneumovir PCR Not detected (NOT DETECT) 04/10/24 08:05 Influenza A (H1) PCR Not detected (NOT DETECT) 04/10/24 08:05 Influ A (H1/09) PCR Not detected (NOT DETECT) 04/10/24 08:05 Influenza A (H3) PCR Not detected (NOT DETECT) 04/10/24 08:05 Influenza Type A (PCR) Not detected (NOT DETECT) 04/10/24 08:05 Influenza Type B (PCR) Not detected (NOT DETECT) 04/10/24 08:05 M. pneumoniae (PCR) Not detected (NOT DETECT) 04/10/24 08:05 Parainfluenza 1 (PCR) Not detected (NOT DETECT) 04/10/24 08:05 Parainfluenza 2 (PCR) Not detected (NOT DETECT) 04/10/24 08:05 Parainfluenza 3 (PCR) Not detected (NOT DETECT) 04/10/24 08:05 Parainfluenza 4 (PCR) Not detected (NOT DETECT) 04/10/24 08:05 RSV Type A (PCR) Not detected (NOT DETECT) 04/10/24 08:05 RSV Type B (PCR) Not detected (NOT DETECT) 04/10/24 08:05 Entero/Rhino (PCR) Not detected (NOT DETECT) 04/10/24 08:05 SARS-CoV-2 (PCR) Not detected (NOT DETECT) 04/10/24 08:05 Blood Type O Positive 04/06/24 11:35 Rho(D) Type Rh positive 04/06/24 11:35 Antibody Screen Negative 04/06/24 11:35 Crossmatch See Detail 04/06/24 11:35 Vitals Last Vital Signs Temp 98.1 F 04/11/24 11:00 Pulse 66 04/11/24 11:00 Resp 15 04/11/24 11:00 BP 131/85 04/11/24 11:00 Pulse Ox 95 04/11/24 11:00 O2 Del Method Room Air 04/11/24 11:00 Results Labs OB ([facility]): Obstetrics US 01/07/24 Blood Type O Positive 04/06/24 Antibody Screen Negative 04/06/24 Hct 22.1 % (36-47) L 04/11/24 Hgb 7.20 g/dL (11.27-16.99) L 04/11/24 Rho(D) Type Rh positive 04/06/24 Plt Count 175 10^3/cmm (157-399) 04/11/24 Hepatitis C Antibody Non-reactive (Nonreactive) 10/25/22 HIV 1&2 Ab & HIV 1 Ag Non-reactive (Non-Reactiv) 10/25/22 Micro Urine Specimen 04/09/24 Discharge Plan Discharge Patient Disposition: Home Condition: Stable Prescriptions: New ibuprofen 800 mg Tablet 800 mg PO PRN PRN (Reason: Pain) Qty: 90 0RF docusate sodium 100 mg Capsule 100 mg PO BID Qty: 60 0RF ferrous sulfate 325 mg (65 mg iron) Tablet,Delayed Release (Dr/Ec) 325 mg PO BIDWM Qty: 60 0RF cefdinir 300 mg Capsule 300 mg PO BID 5 Days Qty: 10 0RF amoxicillin-pot clavulanate 875-125 mg Tablet 1 tab PO BID 3 Days Qty: 6 0RF Continued + DHA 1 tab PO DAILY Discontinued Iron (ferrous sulfate) 1 tab PO DAILY Discharge Orders: Discharge Order (Routine); Ordered 04/11/24 Ordered By: Barbra Hitchcock Discharge Diet: Regular Discharge Activity: Increase activity as tolerated Patient Instructions: Amoxicillin (By mouth), Cefdinir (By mouth), Depression (DC), Preeclampsia and Eclampsia After Delivery (GEN), Hemorrhage (DC), OB Food/Drug Interaction Guide, OB Care at Home, Opioid Safety, OB Home Care, OB Undelivered Discharge, Abnormal Bleeding Activity Restrictions/Additional Instructions: Pelvic rest for 6 weeks. Follow-up with Dr. Hitchcock on Apr 18 at 4:30pm Discharge Attestations [employer] Time Spent in Discharge Care*: greater than 30 min Coding Level of Care Code Acute Code for Chg Fwd Diagnoses hemorrhage O72.1 Spontaneous vaginal delivery O80 Anemia D64.9 Fever R50.9 Endometritis following delivery O86.12 Urinary tract infection N39.0
== END 2024-04-11 13:40 | disposition home or self-care (01) | DRG 806 ==
LOC: OBGYN 21:51
PROVIDERS: Admitting Provider Family Medicine; PCP Family Medicine; Visit Provider Family Medicine
DX: O76 Abnormality in fetal heart rate and rhythm complicating labor and delivery (principal); N39.0 Urinary tract infection, site not specified; Z37.0 Single live birth; O72.1 Other immediate postpartum hemorrhage; O86.20 Urinary tract infection following delivery, unspecified; O86.12 Endometritis following delivery; Z3A.39 39 weeks gestation of pregnancy; B96.20 Unspecified Escherichia coli [E. coli] as the cause of diseases classified elsewhere; O90.81 Anemia of the puerperium; D64.9 Anemia, unspecified
CPT/HCPCS: 36415; 36430; 51702; 59025; 59409; 80053; 81001; 83605; 85007; 85025; 85027; 86850; 86900; 86920; 87040; 87077; 87086; 87186; 87486; 87581; 87633; 96372; 99211; J0290; J0692; J1580; J2405; J2590; J2795; J3490; J7120; J7121; P9016; P9058

== ENCOUNTER → 2025-01-06 12:27 | Outpatient (BNVA) | payer MEDICAID, SELFPAY | PROVIDERS: PCP Family Medicine; Visit Provider Emergency Medicine | DX: R52 Pain, unspecified (principal) | CPT/HCPCS: 73110 ==

== ENCOUNTER → 2025-03-02 13:32 | Outpatient (BNVA) | payer MEDICAID, SELFPAY | PROVIDERS: PCP Family Medicine; Visit Provider Nurse Practitioner Women's Health | DX: N92.6 Irregular menstruation, unspecified (principal) | CPT/HCPCS: 81000; 81025 ==

== ENCOUNTER → 2025-03-26 13:04 | Outpatient (BNVA) | payer MEDICAID, SELFPAY | PROVIDERS: PCP Family Medicine; Visit Provider Nurse Practitioner Women's Health | DX: Z34.90 Encounter for supervision of normal pregnancy, unspecified, unspecified trimester (principal); O09.899 Supervision of other high risk pregnancies, unspecified trimester | CPT/HCPCS: 80307; 82950; 84315; 86592; 86762; 86803; 87086; 87340; 87806 ==

== ENCOUNTER → 2025-03-30 10:30 | Outpatient (BNVA) | payer MEDICAID, SELFPAY | PROVIDERS: PCP Family Medicine; Visit Provider Obstetrics & Gynecology | DX: Z34.90 Encounter for supervision of normal pregnancy, unspecified, unspecified trimester (principal); Z34.80 Encounter for supervision of other normal pregnancy, unspecified trimester | CPT/HCPCS: 82951; 82952; 84315; 85025; 86850; 86900 ==

== ENCOUNTER → 2025-04-24 09:38 | Outpatient (BNVA) | payer MEDICAID, SELFPAY | PROVIDERS: PCP Family Medicine; Visit Provider Nurse Practitioner Women's Health | DX: Z34.90 Encounter for supervision of normal pregnancy, unspecified, unspecified trimester (principal); Z3A.16 16 weeks gestation of pregnancy | CPT/HCPCS: 82105; 84315 ==